=== PATIENT | female | born 1955 | race Caucasian/White ===

== ENCOUNTER 2021-07-11 12:06 | Inpatient (IN) | payer MEDICARE ==
[~2021-07-11] VITALS: Ht 167.6 cm; Wt 48.6 kg
[2021-07-11 13:48] LABS: BASOPHIL 0.5 % (0-2); EOSINOPHIL 1.6 % (0-7); HCT 39.7 % (37.0-47.0); HGB 13.1 g/dl (12.5-16.0); LYMPHOCYTE 11.6 % (15-48); MCH 31.6 pg (25.0-31.0); MCV 95.9 fL (78.0-100.0); MONOCYTE 6.9 % (0-12); MPV 10.8 fL (6.0-9.5); NEUTROPHIL 79.1 % (41-80); NRBC 0; PLT 215 K/uL (150-400); RBC 4.14 M/uL (4.20-5.40); RDW 13.5 % (11.5-14.0); WBC 5.8 K/uL (4.0-10.5)
[2021-07-11 14:07] LABS: ALBUMIN 2.7 g/dL (3.4-5.0); BILIRUBIN - TOTAL 0.4 mg/dL (0.2-1.0); BUN/CREAT RATIO (CALC) 19.8 RATIO; CREATININE 0.81 mg/dL (0.51-0.95); POTASSIUM 3.3 mmol/L (3.5-5.1); TOTAL PROTEIN 6.7 g/dL (6.4-8.2)
[2021-07-11 14:31] LABS: INFLUENZA A NAA NEGATIVE (NEGATIVE)
[2021-07-11 14:38] LABS: CORONAVIRUS 2019 SARS-COV-2 POSITIVE (NEGATIVE)
[2021-07-11 17:09] LABS: BILIRUBIN NEGATIVE (NEGATIVE); BLOOD 1+ Ery/uL (NEGATIVE); COLOR YELLOW (YELLOW); GLUCOSE (U) NORMAL (NORMAL); LEUKOCYTES 3+ Leu/uL (NEGATIVE); NITRITE POSITIVE (NEGATIVE); PROTEIN NEGATIVE (NEGATIVE); SPECIFIC GRAVITY >=1.030 (1.001-1.030); UROBILINOGEN 0.2 mg/dL (0.2-1.0)
[2021-07-11 17:11] LABS: CLARITY CLOUDY (CLEAR)
[2021-07-11 17:18] LABS: URINARY RBC 20-50; URINARY WBC TNTC
[2021-07-11 17:19] LABS: BACTERIA 3+
--- NOTE | 2021-07-11 23:28 | NUR ---
ATTEMPTED TO REACH FAMILY TO OBTAIN DATABASE. AWAITING RETURN CALL. INPUT WAS FROM ER NOTES AND PRIOR VISIT HISTORY.
[2021-07-11] MEDS ORDERED: DONEPEZIL HCL10 MG PO (23:32)
[2021-07-11] MEDS ORDERED: ATORVASTATIN CA80 MG PO (23:50)
[2021-07-11] MEDS ORDERED: FAMOTIDINE40 MG PO (23:50)
[2021-07-11] MEDS ORDERED: METOPROLOL TAR100 MG PO (23:50)
[2021-07-11] MEDS ORDERED: MEMANTINE HCL10 MG PO (23:50)
[2021-07-11] MEDS ORDERED: CLOPIDOGREL75 MG PO (23:51)
[2021-07-11] MEDS ORDERED: FLUOXETINE HCL10 MG PO (23:51)
[2021-07-12 08:01] LABS: BUN/CREAT RATIO (CALC) 14.9 RATIO; CREATININE 0.67 mg/dL (0.51-0.95); POTASSIUM 3.7 mmol/L (3.5-5.1)
--- NOTE | 2021-07-13 07:13 | NUR ---
LATE ENTRY 07/12/21. TC TO WHAT I THOUGHT WAS SPOUSE PHONE NUMBER, BUT IT WAS THE PHONE NUMBER OF THE SON, ZARIA. HE ADVISED THAT HE AND HIS DAD HAVE COVID. THEY WERE TO GO TO [facility] ON SATURDAY FOR A TOUR AND AN INTERVIEW FOR PT., BUT DUE TO THEM HAVING COVID THEY HAVE TO RESCHEDULE. PER ZARIA, HE STATED THAT THE PLAN IS TO RETURN PT TO HOME AND HAVE SOMEONE FROM HOME INSTEAD STAY WITH HIS MOTHER UNTIL THEY CAN GET HER INTO [facility]. ADVISED, YADIRA LION OF THIS INFORMATION.
[2021-07-13] MEDS ORDERED: CEFDINIR300 MG PO (13:19)
[2021-07-13] MEDS ORDERED: DEXAMETHASONE2 MG PO ×2 (13:19→16:13)
--- NOTE | 2021-07-13 13:40 | NUR ---
SPOKE WITH SON ZARIA AFTER ATTEMPTING TO CONTACT SPOUSE. ZARIA ADVISED THAT FAMILY WOULD LIKE TO HAVE HH. THE FAMILY HAS NOT PREFERENCE TO AGENCY. ADVISED HIM THAT [facility] HAS A NURSE, PT/OT AND ST. HE WAS IN AGREEMENT. PLEASE CONTACT ZARIA [phone] WHEN PT IS READY FOR D/C HE WILL TRANSPORT PT. HOME.
== END 2021-07-13 15:55 | disposition home health service (06) | DRG 871 ==
LOC: FER 12:06 → FMS 17:24
PROVIDERS: Emergency Medicine; Nurse Practitioner Acute Care; ADMIT Family Medicine
PROC: XW033E5 Introduction of Remdesivir Anti-infective into Peripheral Vein, Percutaneous Approach, New Technology Group 5 (ICD-10-PCS; 2021-07-11)
PROC: 8E0ZXY6 Isolation (ICD-10-PCS; principal; 2021-07-12)
DX: A41.89 Other specified sepsis (principal); U07.1 COVID-19; G93.41 Metabolic encephalopathy; N39.0 Urinary tract infection, site not specified; E87.2 Acidosis; E44.1 Mild protein-calorie malnutrition; I67.89 Other cerebrovascular disease; R65.20 Severe sepsis without septic shock; E87.6 Hypokalemia; G30.9 Alzheimer's disease, unspecified; F02.80 Dementia in other diseases classified elsewhere, unspecified severity, without behavioral disturbance, psychotic disturbance, mood disturbance, and anxiety; R32 Unspecified urinary incontinence; Z66 Do not resuscitate; J32.9 Chronic sinusitis, unspecified; R13.10 Dysphagia, unspecified; R73.9 Hyperglycemia, unspecified; Z79.899 Other long term (current) drug therapy
CPT/HCPCS: 36415; 70450; 71045; 80048; 80053; 81001; 83605; 85025; 87040; 87076; 87088; 87186; 96372; 97162; 97166; 97530-GP; 97535; C9399; G0378; J0696; J1650; J7030; J7050; J8540; U0002